=== PATIENT | male | born 1960 | race Hispanic/Latino ===

== ENCOUNTER 2020-05-07 16:38 | Inpatient (IN) | payer MEDICARE ==
--- NOTE | 2020-05-08 08:19 | History and Physical Report ---
GP History & Physical - History of Present Illness Date of admission: 05/07/20 Date of Examination: 05/08/20 Reason for Admission: Danger to self, Failure of Outpatient Treatment, Severe anxiety/depression History of Present Illness: Joseluis Combs is a 60y/o male patient who was admitted to [facility] for severe depression and suicidal thoughts. He says his depression has been "bad for about a month." He says he has "a lot of stuff going on." The patient currently denies suicide at present, but states he was when he came in. He says "I had back surgery and lost my mom, it's been a lot." He denies hallucinations of any kind. Mr. Comsb says he has a history of "bipolar, schizophrenia, and borderline personality disorder." He says he takes "seroquel and klonopin." The patient denies illicit drug use, and alcohol use. He says he is a smoker but states "I don't not want a patch. They run my blood pressure up." PAST PSYCHIATRIC HISTORY Diagnoses: Bipolar, schizophrenia, borderline personality disorder Suicide attempts or Self-harm behavior: Three times Prior psychiatric hospitalizations: Yes Substance Abuse history: Nicotine Previous psychiatric medications tried: Seroquel, klonopin Outpatient treatment: Yes PAST MEDICAL HISTORY: Chronic back pain, HTN Family Psychiatric History: None reported or documented SOCIAL HISTORY Marital Status: Single Living Arrangements: with fiance Employment Status: disabled Access to guns/weapons: Denies Education: High school graduate History of Abuse: None reported Legal History: Denies REVIEW OF SYSTEMS Constitutional: Negative for weight loss ENT: Negative for stridor Respiratory: Negative for cough or hemoptysis All other systems reviewed and are negative MENTAL STATUS EXAMINATION General Appearance: Dressed appropriately. Behavior: calm and Cooperative. Polite Mood: "Depressed" Affect: Congruent with stated mood Speech: Normal tone, and pace Thought Process: Goal directed Suicidal Ideation: Denies at present, but upon admission Homicidal Ideation: Denies Hallucinations: Denies Delusions: None elicited Insight and Judgment: Limited Memory/Cognition: Limited ASSESSMENT Bipolar Disorder, Severe, Current Episode Depressed w/o Psychotic Features Treatment Plan Patient admitted for inpatient psychiatric evaluation, medication adjustment and close monitoring The patient's behavior, mood, sleep and appetite will be closely monitored. Patient enrolled in individual and group therapeutic sessions and encouraged to attend. Patient provided with a safe and structured environment. Patient's physical health needs will be addressed by the Hospitalist. Hospitalist Consulted Labs including CBC, CMP, Lipid profile and Hemoglobin A1C levels ordered for baseline reference Restarted home meds Start Zoloft 25mg po daily Social Assessment will be completed and the Ampoule Filler will work with patient and family to ensure a suitable and safe disposition Medication adjustment will be made as clinically indicated Usual Wellness Denominational/Preservation: - Start Trazodone 50 mg po QHS & 50 mg po QHS PRN between 10 PM & 2 AM for insomnia - Start Melatonin 5 mg po QHS to promote circadian rhythm - Start [place]-3 for brain health, reduce impulsivity, and as adjunctive treatment for mood disorder, continue upon discharge given overall benefits. - Start B1 prophylaxis with 200 mg po for 5 days Estimated days: 3 Post hospital care: primary care provider, psychiatric provider This certifies that Joseluis Combs is a 60y/o male patient who is expected to improved for the condition of Bipolar Disorder, with the symptoms of severe depression, and suicidal thoughts. VALERY (7 days) Outpatient treatment upon discharge Legal Status: Voluntary Reaction to Hospitalization: Accepting Medications and Allergies Allergies Allergy/AdvReac Type Severity Reaction Status Date / Time ketorolac Allergy Unknown Rash Verified 05/08/20 05:35 Penicillins Allergy Rash Verified 05/08/20 05:38 sumatriptan Allergy Rash Verified 05/08/20 05:39 Home Medications Medication Instructions Recorded Confirmed Last Taken Type Aspirin 81 mg PO DAILY 05/08/20 05/08/20 Unknown History Lipitor 40 mg PO QHS 05/08/20 05/08/20 Unknown History Metoprolol SUCCINATE ER TAB 50 mg PO DAILY 05/08/20 05/08/20 Unknown History SEROquel 300 mg PO HS 05/08/20 05/08/20 Unknown History clonazePAM 0.5 mg PO TID 05/08/20 05/08/20 Unknown History oxyCODONE /ACETAMINOPHEN 5 mg PO Q6HR PRN 05/08/20 05/08/20 Unknown History Results - Results Labs/Vitals: Laboratory Last Values POC Glucose 101 mg/dL (70-105) 05/08/20 05:07 Last Vital Signs Temp 98.3 F 05/08/20 04:45 Pulse 78 05/08/20 04:45 Resp 18 05/08/20 04:45 BP 142/99 05/08/20 04:45 Pulse Ox 95 05/08/20 04:45 Physical Examination - Constitutional Vitals: Vital Signs Temp Pulse Resp BP Pulse Ox 98.3 F 78 18 142/99 95 05/08/20 04:45 05/08/20 04:45 05/08/20 04:45 05/08/20 04:45 05/08/20 04:45 Temperature -Last 24 Hours Temperature 98.3 F Mental Status Exam - Vital signs Last Vital Signs Temp 98.3 F 05/08/20 04:45 Pulse 78 05/08/20 04:45 Resp 18 05/08/20 04:45 BP 142/99 05/08/20 04:45 Pulse Ox 95 05/08/20 04:45 Physician Certification - Certification Statement Physician Certification Statement: This is an acknowledgement statement that JOSELUIS COMBS is a 60 year old M who requires inpatient psychiatric admission for treatment which could reasonably be expected to improve the patient's condition for Estimated period of time patient will need to remain in the hospital: [ ] Plan for post-hospital care: [ ]
[2020-05-08] MEDS ORDERED: OXYCODONE PO PRN (08:27)
[2020-05-08] MEDS ORDERED: ACETAMINOPHEN PO PRN (08:27)
[2020-05-08] MEDS ORDERED: oxyCODONE /ACETAMINOPHEN 5-325MG TAB PO PRN (09:00)
[2020-05-08] MEDS: ASPIRIN EC 81 MG TAB PO SCH (09:15)
[2020-05-08] MEDS: clonazePAM 0.5 MG TAB PO SCH ×3 (09:15→22:27)
[2020-05-08] MEDS: SERTRALINE 25 MG TAB PO SCH (09:16)
[2020-05-08] MEDS: METOPROLOL SUCCINATE XL 50 MG TAB PO SCH (09:16)
[2020-05-08] MEDS ORDERED: NON-FORMULARY EACH (Aspirin 81 MG) PO SCH (10:00)
[2020-05-08] MEDS ORDERED: METOPROLOL SUCCINATE 50 MG PO SCH (10:00)
[2020-05-08] MEDS ORDERED: CLONAZEPAM 0.5 MG PO SCH (14:00)
--- NOTE | 2020-05-08 15:39 | Consultation ---
History of Present Illness - Reason for Consult Consult date: 05/08/20 Medical Management Requesting physician: CAREN HERMAN - History of Present Illness 60 YO Male with HTN, HLD, Migraine DAVISON, Chronic Pain Syndrome, LDD admitted to [facility] for psychiatric stabilization. consult placed by Dr. Herman for medical management. Patient seen and evaluated in the recreation room. Patient resting comfortably. No reported nursing events. Patient reports chronic pain. Patient denies fever, chills, chest pain, palpitation, productive cough, skin rash, recent ill contacts, or known exposure to COVID-19. Past History Past Medical History: hypertension, hyperlipidemia, other (See HPI) Past Surgical History: Other (Back surgery) Social history: single. denies: smoking Family history: hypertension Medications and Allergies Allergies Allergy/AdvReac Type Severity Reaction Status Date / Time ketorolac Allergy Unknown Rash Verified 05/08/20 05:35 Penicillins Allergy Rash Verified 05/08/20 05:38 sumatriptan Allergy Rash Verified 05/08/20 05:39 Home Medications Medication Instructions Recorded Confirmed Last Taken Type Aspirin 81 mg PO DAILY 05/08/20 05/08/20 Unknown History Lipitor 40 mg PO QHS 05/08/20 05/08/20 Unknown History Metoprolol SUCCINATE ER TAB 50 mg PO DAILY 05/08/20 05/08/20 Unknown History SEROquel 300 mg PO HS 05/08/20 05/08/20 Unknown History clonazePAM 0.5 mg PO TID 05/08/20 05/08/20 Unknown History oxyCODONE /ACETAMINOPHEN 5 mg PO Q6HR PRN 05/08/20 05/08/20 Unknown History Active Meds: Active Medications Aspirin (Halfprin Ec) 81 mg PO QDAY [facility] Last Admin: 05/08/20 09:15 Dose: 81 mg Documented by: Atorvastatin Calcium (Lipitor) 40 mg PO QHS [facility] Clonazepam (Klonopin) 0.5 mg PO TID [facility] Last Admin: 05/08/20 15:06 Dose: 0.5 mg Documented by: Metoprolol Succinate (Metoprolol Xl) 50 mg PO QDAY [facility] Last Admin: 05/08/20 09:16 Dose: 50 mg Documented by: Oxycodone/Acetaminophen (Percocet 5/325) 1 tab PO Q6H [facility] Quetiapine Fumarate (Seroquel) 300 mg PO QHS [facility] Sertraline HCl (Zoloft) 25 mg PO QDAY [facility] Last Admin: 05/08/20 09:16 Dose: 25 mg Documented by: Review of Systems Constitutional: chronic pain, no weight loss, no weight gain, no fever, no chills Ears, nose, mouth and throat: no ear pain, no ear discharge, no tinnitis, no decreased hearing, no nasal congestion Cardiovascular: no chest pain, no orthopnea, no rapid/irregular heart beat, no lightheadedness Respiratory: no cough, no cough with sputum, no hemoptysis, no shortness of br eath Gastrointestinal: no abdominal pain, no nausea, no vomiting, no diarrhea, no change in bowel habits, no hematemesis Genitourinary Male: no hematuria, no flank pain, no discharge, no urinary frequency Rectal: no pain Musculoskeletal: low back pain, no neck pain, no arm numbness/tingling, no leg numbness/tingling Integumentary: no rash, no redness, no sores, no wounds Neurological: no transient paralysis, no parathesias, no tingling, no seizures, no tremors Psychiatric: depression, no change in sleep habits, no sleep disturbances, no insomnia Endocrine: no cold intolerance, no heat intolerance, no excessive thirst, no polydipsia Hematologic/Lymphatic: no easy bruising, no easy bleeding Allergic/Immunologic: no allergic rhinitis, no wheezing Exam - Constitutional Vitals: Temp Pulse Resp BP Pulse Ox 98.3 F 76 16 131/86 97 05/08/20 10:00 05/08/20 10:00 05/08/20 10:00 05/08/20 10:00 05/08/20 10:00 General appearance: Present: no acute distress, well-nourished - EENT Eyes: Present: PERRL ENT: hearing intact, clear oral mucosa - Neck Neck: Present: supple, normal ROM - Respiratory Respiratory effort: normal Respiratory: bilateral: CTA - Cardiovascular Heart Sounds: Present: S1 & S2. Absent: rub, click - Extremities Extremities: pulses symmetrical, No edema Peripheral Pulses: within normal limits - Abdominal General gastrointestinal: Present: soft, non-tender, non-distended, normal bowel sounds Male genitourinary: Present: normal - Integumentary Integumentary: Present: clear, warm, dry - Musculoskeletal Musculoskeletal: gait normal, strength equal bilaterally - Psychiatric Psychiatric: appropriate mood/affect, intact judgment & insight - Neurologic Neurologic: CNII-XII intact, moves all extremities Results - Labs CBC & Chem 7: 05/08/20 19:37 05/08/20 19:37 Assessment and Plan - Patient Problems (1) Hypertension Current Visit: Yes Status: Acute Qualifiers: Hypertension type: essential hypertension Qualified Code(s): I10 - Essential (primary) hypertension Plan to address problem: Monitor blood pressure every shift, continue medical management. (2) Hyperlipidemia Current Visit: Yes Status: Acute Qualifiers: Hyperlipidemia type: mixed hyperlipidemia Qualified Code(s): E78.2 - Mixed hyperlipidemia Plan to address problem: Low-cholesterol diet, statin therapy is clinically indicated, supportive care. (3) Chronic pain syndrome Current Visit: Yes Status: Acute Plan to address problem: Pain control, supportive care, continue medical management. (4) Migraine headache Current Visit: Yes Status: Acute Plan to address problem: Supportive care, no headache at this time.
[2020-05-08] MEDS: oxyCODONE /ACETAMINOPHEN 5-325MG TAB PO SCH ×2 (15:41→22:27)
[2020-05-08 20:28] LABS: Alanine Aminotransferase 20 units/L (7-56); Albumin 4.6 g/dL (3.9-5); BUN/Creatinine Ratio 14; Blood Urea Nitrogen 11 mg/dL (9-20); Calcium 9.4 mg/dL (8.4-10.2); Chol/HDL Ratio 5.36 %; HDL Cholesterol 38 mg/dL (40-59); Hemolysis Index 39; LDL Cholesterol,Direct 140 mg/dL (50-130)
[2020-05-08 20:32] LABS: Basophils % (Auto) 0.5 % (0.0-1.8); Eosinophils # (Auto) 0.1 K/mm3 (0.0-0.4); Eosinophils % (Auto) 1.3 % (0.0-4.3); Hematocrit 45.1 % (35.5-45.6); Hemoglobin 15.6 gm/dl (11.8-15.2); Lymphocytes # (Auto) 1.5 K/mm3 (1.2-5.4); Lymphocytes % (Auto) 27.3 % (13.4-35.0); Mean Corpuscular HGB Conc 35 % (32-34); Mean Corpuscular Volume 91 fl (84-94); Monocytes # (Auto) 0.6 K/mm3 (0.0-0.8); Monocytes % (Auto) 10.9 % (0.0-7.3); Platelet Count 131 K/mm3 (140-440); Red Blood Count 4.98 M/mm3 (3.65-5.03); Red Cell Distribution Width 13.5 % (13.2-15.2)
[2020-05-08] MEDS ORDERED: NON-FORMULARY EACH (Seroquel 300 MG) PO SCH (22:00)
[2020-05-08] MEDS ORDERED: NON-FORMULARY EACH (Lipitor 40 MG) PO SCH (22:00)
[2020-05-08] MEDS: QUEtiapine 100 MG TAB PO SCH (22:27)
[2020-05-09] MEDS: oxyCODONE /ACETAMINOPHEN 5-325MG TAB PO SCH ×4 (04:40→22:00)
[2020-05-09] MEDS: METOPROLOL SUCCINATE XL 50 MG TAB PO SCH (09:34)
[2020-05-09] MEDS: clonazePAM 0.5 MG TAB PO SCH ×3 (09:34→20:30)
[2020-05-09] MEDS: ASPIRIN EC 81 MG TAB PO SCH (09:34)
[2020-05-09] MEDS: SERTRALINE 25 MG TAB PO SCH (09:34)
--- NOTE | 2020-05-09 10:44 | Progress Note ---
Subjective Date of service: 05/09/20 Principal diagnosis: Major Depressive Disorder Subjective Comment: During my interview with the patient today, he states he is better, but says he's still in a lot of pain. The patient denies SI/HI at the moment but says it's on and off. He denies hallucinations of any kind. He says his mood is "pretty good, just in pain." Reason for continued inpatient treatment: The patient has suicidal thoughts on and off REVIEW OF SYSTEMS Constitutional: Negative for weight loss ENT: Negative for stridor Respiratory: Negative for cough or hemoptysis All other systems reviewed and are negative MENTAL STATUS EXAMINATION General Appearance: Dressed appropriately. Behavior: calm and Cooperative. Polite Mood: "good" Affect: Congruent with stated mood Speech: Normal tone, and pace Thought Process: Goal directed Suicidal Ideation: Denies at present, but on and off Homicidal Ideation: Denies Hallucinations: Denies Delusions: None elicited Insight and Judgment: Limited Memory/Cognition: Limited ASSESSMENT Bipolar Disorder, Severe, Current Episode Depressed w/o Psychotic Features Treatment Plan Patient admitted for inpatient psychiatric evaluation, medication adjustment and close monitoring The patient's behavior, mood, sleep and appetite will be closely monitored. Patient enrolled in individual and group therapeutic sessions and encouraged to attend. Patient provided with a safe and structured environment. Patient's physical health needs will be addressed by the Hospitalist. Hospitalist Consulted Labs including CBC, CMP, Lipid profile and Hemoglobin A1C levels ordered for baseline reference Started zoloft 25mg daily yesterday No changes today Social Assessment will be completed and the Surgical Orderly will work with patient and family to ensure a suitable and safe disposition Medication adjustment will be made as clinically indicated Usual Wellness Restorationist/Preservation: - Start Trazodone 50 mg po QHS & 50 mg po QHS PRN between 10 PM & 2 AM for insomnia - Start Melatonin 5 mg po QHS to promote circadian rhythm - Start [place]-3 for brain health, reduce impulsivity, and as adjunctive treatment for mood disorder, continue upon discharge given overall benefits. - Start B1 prophylaxis with 200 mg po for 5 days Estimated days: 3 Post hospital care: primary care provider, psychiatric provider This certifies that Joseluis Huff is a 60y/o male patient who is expected to improved for the condition of Bipolar Disorder, with the symptoms of severe depression, and suicidal thoughts. ELOS (7 days) Outpatient treatment upon discharge Medications and Allergies Allergies Allergy/AdvReac Type Severity Reaction Status Date / Time ketorolac Allergy Unknown Rash Verified 05/08/20 05:35 Penicillins Allergy Rash Verified 05/08/20 05:38 sumatriptan Allergy Rash Verified 05/08/20 05:39 Home Medications Medication Instructions Recorded Confirmed Last Taken Type Aspirin 81 mg PO DAILY 05/08/20 05/08/20 Unknown History Lipitor 40 mg PO QHS 05/08/20 05/08/20 Unknown History Metoprolol SUCCINATE ER TAB 50 mg PO DAILY 05/08/20 05/08/20 Unknown History SEROquel 300 mg PO HS 05/08/20 05/08/20 Unknown History clonazePAM 0.5 mg PO TID 05/08/20 05/08/20 Unknown History oxyCODONE /ACETAMINOPHEN 5 mg PO Q6HR PRN 05/08/20 05/08/20 Unknown History Active Meds: Active Medications Aspirin (Halfprin Ec) 81 mg PO QDAY [facility] Last Admin: 05/09/20 09:34 Dose: 81 mg Documented by: Atorvastatin Calcium (Lipitor) 40 mg PO QHS [facility] Last Admin: 05/08/20 22:26 Dose: 40 mg Documented by: Clonazepam (Klonopin) 0.5 mg PO TID [facility] Last Admin: 05/09/20 09:34 Dose: 0.5 mg Documented by: Metoprolol Succinate (Metoprolol Xl) 50 mg PO QDAY [facility] Last Admin: 05/09/20 09:34 Dose: 50 mg Documented by: Oxycodone/Acetaminophen (Percocet 5/325) 1 tab PO Q6H [facility] Last Admin: 05/09/20 10:10 Dose: 1 tab Documented by: Quetiapine Fumarate (Seroquel) 300 mg PO QHS [facility] Last Admin: 05/08/20 22:27 Dose: 300 mg Documented by: Sertraline HCl (Zoloft) 25 mg PO QDAY [facility] Last Admin: 05/09/20 09:34 Dose: 25 mg Documented by: Results - Results Labs/Vitals: Laboratory Last Values WBC 5.5 K/mm3 (4.5-11.0) 05/08/20 19:37 RBC 4.98 M/mm3 (3.65-5.03) 05/08/20 19:37 Hgb 15.6 gm/dl (11.8-15.2) H 05/08/20 19:37 Hct 45.1 % (35.5-45.6) 05/08/20 19:37 MCV 91 fl (84-94) 05/08/20 19:37 MCH 31 pg (28-32) 05/08/20 19:37 MCHC 35 % (32-34) H 05/08/20 19:37 RDW 13.5 % (13.2-15.2) 05/08/20 19:37 Plt Count 131 K/mm3 (140-440) L 05/08/20 19:37 Lymph % (Auto) 27.3 % (13.4-35.0) 05/08/20 19:37 [place] % (Auto) 10.9 % (0.0-7.3) H 05/08/20 19:37 Eos % (Auto) 1.3 % (0.0-4.3) 05/08/20 19:37 Baso % (Auto) 0.5 % (0.0-1.8) 05/08/20 19:37 Lymph # (Auto) 1.5 K/mm3 (1.2-5.4) 05/08/20 19:37 [place] # (Auto) 0.6 K/mm3 (0.0-0.8) 05/08/20 19:37 Eos # (Auto) 0.1 K/mm3 (0.0-0.4) 05/08/20 19:37 Baso # (Auto) 0.0 K/mm3 (0.0-0.1) 05/08/20 19:37 Seg Neutrophils % 60.0 % (40.0-70.0) 05/08/20 19:37 Seg Neutrophils # 3.3 K/mm3 (1.8-7.7) 05/08/20 19:37 Sodium 136 mmol/L (137-145) L 05/08/20 19:37 Potassium 4.0 mmol/L (3.6-5.0) 05/08/20 19:37 Chloride 102.1 mmol/L (98-107) 05/08/20 19:37 Carbon Dioxide 22 mmol/L (22-30) 05/08/20 19:37 Anion Gap 16 mmol/L 05/08/20 19:37 BUN 11 mg/dL (9-20) 05/08/20 19:37 Creatinine 0.8 mg/dL (0.8-1.3) 05/08/20 19:37 Estimated GFR > 60 ml/min 05/08/20 19:37 BUN/Creatinine Ratio 14 % 05/08/20 19:37 Glucose 91 mg/dL (75-100) 05/08/20 19:37 POC Glucose 101 mg/dL (70-105) 05/08/20 05:07 Hemoglobin A1c 5.5 % (4-6) 05/08/20 19:37 Calcium 9.4 mg/dL (8.4-10.2) 05/08/20 19:37 Total Bilirubin 0.60 mg/dL (0.1-1.2) 05/08/20 19:37 AST 21 units/L (5-40) 05/08/20 19:37 ALT 20 units/L (7-56) 05/08/20 19:37 Alkaline Phosphatase 164 units/L (35-129) H 05/08/20 19:37 Total Protein 7.6 g/dL (6.3-8.2) 05/08/20 19:37 Albumin 4.6 g/dL (3.9-5) 05/08/20 19:37 Albumin/Globulin Ratio 1.5 % 05/08/20 19:37 Triglycerides 241 mg/dL (2-149) H 05/08/20 19:37 Cholesterol 204 mg/dL (50-199) H 05/08/20 19:37 LDL Cholesterol Direct 140 mg/dL (50-130) H 05/08/20 19:37 HDL Cholesterol 38 mg/dL (40-59) L 05/08/20 19:37 Cholesterol/HDL Ratio 5.36 % 05/08/20 19:37 TSH 2.500 mlU/mL (0.270-4.200) 05/08/20 19:37 Last Vital Signs Temp 98.7 F 05/09/20 08:45 Pulse 97 H 05/09/20 09:34 Resp 18 05/09/20 10:10 BP 118/86 05/09/20 08:45 Pulse Ox 95 05/09/20 08:45
[2020-05-09] MEDS: QUEtiapine 100 MG TAB PO SCH (21:59)
[2020-05-10] MEDS: oxyCODONE /ACETAMINOPHEN 5-325MG TAB PO SCH ×4 (04:00→21:24)
[2020-05-10] MEDS: clonazePAM 0.5 MG TAB PO SCH ×3 (07:53→20:33)
[2020-05-10] MEDS: ASPIRIN EC 81 MG TAB PO SCH (09:38)
[2020-05-10] MEDS: SERTRALINE 25 MG TAB PO SCH (09:38)
[2020-05-10] MEDS: METOPROLOL SUCCINATE XL 50 MG TAB PO SCH (09:39)
--- NOTE | 2020-05-10 11:22 | Progress Note ---
Subjective Date of service: 05/10/20 Principal diagnosis: Major Depressive Disorder Subjective Comment: During my interview with the patient today, he states he is better, but says he's still in a lot of pain. The patient denies SI/HI at the moment but says it's on and off. He denies hallucinations of any kind. The patient describes his mood as "okay." He states his pain is the source of his "thoughts." Reason for continued inpatient treatment: The patient appears to have significantly improved. Will continue to treat and evaluate to ensue a safe discharge. REVIEW OF SYSTEMS Constitutional: Negative for weight loss ENT: Negative for stridor Respiratory: Negative for cough or hemoptysis All other systems reviewed and are negative MENTAL STATUS EXAMINATION General Appearance: Dressed appropriately. Behavior: calm and Cooperative. Polite Mood: Okay Affect: Congruent with stated mood Speech: Normal tone, and pace Thought Process: Goal directed Suicidal Ideation: Denies at present Homicidal Ideation: Denies Hallucinations: Denies Delusions: None elicited Insight and Judgment: Limited Memory/Cognition: Limited ASSESSMENT Bipolar Disorder, Severe, Current Episode Depressed w/o Psychotic Features Treatment Plan Patient admitted for inpatient psychiatric evaluation, medication adjustment and close monitoring The patient's behavior, mood, sleep and appetite will be closely monitored. Patient enrolled in individual and group therapeutic sessions and encouraged to attend. Patient provided with a safe and structured environment. Patient's physical health needs will be addressed by the Hospitalist. Hospitalist Consulted Labs including CBC, CMP, Lipid profile and Hemoglobin A1C levels ordered for baseline reference No changes today Social Assessment will be completed and the Tieing Machine Operator will work with patient and family to ensure a suitable and safe disposition Medication adjustment will be made as clinically indicated Usual Wellness Zoroastrian/Preservation: - Start Trazodone 50 mg po QHS & 50 mg po QHS PRN between 10 PM & 2 AM for insomnia - Start Melatonin 5 mg po QHS to promote circadian rhythm - Start [place]-3 for brain health, reduce impulsivity, and as adjunctive treatment for mood disorder, continue upon discharge given overall benefits. - Start B1 prophylaxis with 200 mg po for 5 days Estimated days: 3 Post hospital care: primary care provider, psychiatric provider This certifies that Joseluis Huff is a 60y/o male patient who is expected to improved for the condition of Bipolar Disorder, with the symptoms of severe depression, and suicidal thoughts. VALERY (7 days) Outpatient treatment upon discharge Medications and Allergies Allergies Allergy/AdvReac Type Severity Reaction Status Date / Time ketorolac Allergy Unknown Rash Verified 05/08/20 05:35 Penicillins Allergy Rash Verified 05/08/20 05:38 sumatriptan Allergy Rash Verified 05/08/20 05:39 Home Medications Medication Instructions Recorded Confirmed Last Taken Type Aspirin 81 mg PO DAILY 05/08/20 05/08/20 Unknown History Lipitor 40 mg PO QHS 05/08/20 05/08/20 Unknown History Metoprolol SUCCINATE ER TAB 50 mg PO DAILY 05/08/20 05/08/20 Unknown History SEROquel 300 mg PO HS 05/08/20 05/08/20 Unknown History clonazePAM 0.5 mg PO TID 05/08/20 05/08/20 Unknown History oxyCODONE /ACETAMINOPHEN 5 mg PO Q6HR PRN 05/08/20 05/08/20 Unknown History Active Meds: Active Medications Aspirin (Halfprin Ec) 81 mg PO QDAY [facility] Last Admin: 05/10/20 09:38 Dose: 81 mg Documented by: Atorvastatin Calcium (Lipitor) 40 mg PO QHS [facility] Last Admin: 05/09/20 22:01 Dose: 40 mg Documented by: Clonazepam (Klonopin) 0.5 mg PO TID [facility] Last Admin: 05/10/20 07:53 Dose: 0.5 mg Documented by: Metoprolol Succinate (Metoprolol Xl) 50 mg PO QDAY [facility] Last Admin: 05/10/20 09:39 Dose: Not Given Documented by: Oxycodone/Acetaminophen (Percocet 5/325) 1 tab PO Q6H [facility] Last Admin: 05/10/20 09:38 Dose: 1 tab Documented by: Quetiapine Fumarate (Seroquel) 300 mg PO QHS [facility] Last Admin: 05/09/20 21:59 Dose: 300 mg Documented by: Sertraline HCl (Zoloft) 25 mg PO QDAY [facility] Last Admin: 05/10/20 09:38 Dose: 25 mg Documented by: Results - Results Labs/Vitals: Laboratory Last Values WBC 5.5 K/mm3 (4.5-11.0) 05/08/20 19:37 RBC 4.98 M/mm3 (3.65-5.03) 05/08/20 19:37 Hgb 15.6 gm/dl (11.8-15.2) H 05/08/20 19:37 Hct 45.1 % (35.5-45.6) 05/08/20 19:37 MCV 91 fl (84-94) 05/08/20 19:37 MCH 31 pg (28-32) 05/08/20 19:37 MCHC 35 % (32-34) H 05/08/20 19:37 RDW 13.5 % (13.2-15.2) 05/08/20 19:37 Plt Count 131 K/mm3 (140-440) L 05/08/20 19:37 Lymph % (Auto) 27.3 % (13.4-35.0) 05/08/20 19:37 [place] % (Auto) 10.9 % (0.0-7.3) H 05/08/20 19:37 Eos % (Auto) 1.3 % (0.0-4.3) 05/08/20 19:37 Baso % (Auto) 0.5 % (0.0-1.8) 05/08/20 19:37 Lymph # (Auto) 1.5 K/mm3 (1.2-5.4) 05/08/20 19:37 [place] # (Auto) 0.6 K/mm3 (0.0-0.8) 05/08/20 19:37 Eos # (Auto) 0.1 K/mm3 (0.0-0.4) 05/08/20 19:37 Baso # (Auto) 0.0 K/mm3 (0.0-0.1) 05/08/20 19:37 Seg Neutrophils % 60.0 % (40.0-70.0) 05/08/20 19:37 Seg Neutrophils # 3.3 K/mm3 (1.8-7.7) 05/08/20 19:37 Sodium 136 mmol/L (137-145) L 05/08/20 19:37 Potassium 4.0 mmol/L (3.6-5.0) 05/08/20 19:37 Chloride 102.1 mmol/L (98-107) 05/08/20 19:37 Carbon Dioxide 22 mmol/L (22-30) 05/08/20 19:37 Anion Gap 16 mmol/L 05/08/20 19:37 BUN 11 mg/dL (9-20) 05/08/20 19:37 Creatinine 0.8 mg/dL (0.8-1.3) 05/08/20 19:37 Estimated GFR > 60 ml/min 05/08/20 19:37 BUN/Creatinine Ratio 14 % 05/08/20 19:37 Glucose 91 mg/dL (75-100) 05/08/20 19:37 POC Glucose 101 mg/dL (70-105) 05/08/20 05:07 Hemoglobin A1c 5.5 % (4-6) 05/08/20 19:37 Calcium 9.4 mg/dL (8.4-10.2) 05/08/20 19:37 Total Bilirubin 0.60 mg/dL (0.1-1.2) 05/08/20 19:37 AST 21 units/L (5-40) 05/08/20 19:37 ALT 20 units/L (7-56) 05/08/20 19:37 Alkaline Phosphatase 164 units/L (35-129) H 05/08/20 19:37 Total Protein 7.6 g/dL (6.3-8.2) 05/08/20 19:37 Albumin 4.6 g/dL (3.9-5) 05/08/20 19:37 Albumin/Globulin Ratio 1.5 % 05/08/20 19:37 Triglycerides 241 mg/dL (2-149) H 05/08/20 19:37 Cholesterol 204 mg/dL (50-199) H 05/08/20 19:37 LDL Cholesterol Direct 140 mg/dL (50-130) H 05/08/20 19:37 HDL Cholesterol 38 mg/dL (40-59) L 05/08/20 19:37 Cholesterol/HDL Ratio 5.36 % 05/08/20 19:37 TSH 2.500 mlU/mL (0.270-4.200) 05/08/20 19:37 Last Vital Signs Temp 97.9 F 05/10/20 08:24 Pulse 82 05/10/20 09:39 Resp 18 05/10/20 09:38 BP 99/60 05/10/20 09:39 Pulse Ox 96 05/10/20 08:24
[2020-05-10] MEDS: QUEtiapine 100 MG TAB PO SCH (21:24)
[2020-05-11] MEDS: oxyCODONE /ACETAMINOPHEN 5-325MG TAB PO SCH (03:23)
--- NOTE | 2020-05-11 08:00 | Discharge Summary ---
Providers - Providers Date of Admission: 05/08/20 04:31 Date of discharge: 05/11/20 Attending physician: CAREN HERMAN MD 05/07/20 17:02 Consult to Physician [CONS] Routine Comment: Consulting Provider: STANISLAW ROBERTS Physician Instructions: Reason For Exam: manage medical conditions 05/09/20 09:46 Speech Therapy Evaluation and Treat [CONS] Stat Reason For Exam: Difficultly swallowing Primary care physician: LEAD PONY RIDER Hospitalization Reason for admission: SI Admitting Diagnosis: F33.9 - MAJOR DEPRESSIVE DISORDER, RECURRENT, UNSPECIFIED Condition: Stable Hospital course: The patient was provided inpatient psychiatric treatment with safe and supportive care, medication adjustment, adverse effect monitoring, medical evaluations, medical treatments, assessment and psycho-education. The patient's mood, cognition, behavior, moral support are improved and stabilized. St the time of discharge, the patient had no endangering behavior and no debilitating adverse effects. The patient agreed on potential consequences of no treatment and gave informed consent. Disposition: DC- TO HOME OR SELFCARE Time spent for discharge: 38 Allergies/Adverse Reactions: Allergies ketorolac Allergy (Unknown, Verified 05/08/20 05:35) Rash Penicillins Allergy (Verified 05/08/20 05:38) Rash sumatriptan Allergy (Verified 05/08/20 05:39) Rash Vital Signs: Last Vital Signs Temp 98.5 F 05/10/20 19:33 Pulse 72 05/10/20 19:33 Resp 18 05/11/20 03:23 BP 117/78 05/10/20 19:33 Pulse Ox 96 05/10/20 19:33 Last Lab: Laboratory Last Values WBC 5.5 K/mm3 (4.5-11.0) 05/08/20 19:37 RBC 4.98 M/mm3 (3.65-5.03) 05/08/20 19:37 Hgb 15.6 gm/dl (11.8-15.2) H 05/08/20 19:37 Hct 45.1 % (35.5-45.6) 05/08/20 19:37 MCV 91 fl (84-94) 05/08/20 19:37 MCH 31 pg (28-32) 05/08/20 19:37 MCHC 35 % (32-34) H 05/08/20 19:37 RDW 13.5 % (13.2-15.2) 05/08/20 19:37 Plt Count 131 K/mm3 (140-440) L 05/08/20 19:37 Lymph % (Auto) 27.3 % (13.4-35.0) 05/08/20 19:37 [place] % (Auto) 10.9 % (0.0-7.3) H 05/08/20 19:37 Eos % (Auto) 1.3 % (0.0-4.3) 05/08/20 19:37 Baso % (Auto) 0.5 % (0.0-1.8) 05/08/20 19:37 Lymph # (Auto) 1.5 K/mm3 (1.2-5.4) 05/08/20 19:37 [place] # (Auto) 0.6 K/mm3 (0.0-0.8) 05/08/20 19:37 Eos # (Auto) 0.1 K/mm3 (0.0-0.4) 05/08/20 19:37 Baso # (Auto) 0.0 K/mm3 (0.0-0.1) 05/08/20 19:37 Seg Neutrophils % 60.0 % (40.0-70.0) 05/08/20 19:37 Seg Neutrophils # 3.3 K/mm3 (1.8-7.7) 05/08/20 19:37 Sodium 136 mmol/L (137-145) L 05/08/20 19:37 Potassium 4.0 mmol/L (3.6-5.0) 05/08/20 19:37 Chloride 102.1 mmol/L (98-107) 05/08/20 19:37 Carbon Dioxide 22 mmol/L (22-30) 05/08/20 19:37 Anion Gap 16 mmol/L 05/08/20 19:37 BUN 11 mg/dL (9-20) 05/08/20 19:37 Creatinine 0.8 mg/dL (0.8-1.3) 05/08/20 19:37 Estimated GFR > 60 ml/min 05/08/20 19:37 BUN/Creatinine Ratio 14 % 05/08/20 19:37 Glucose 91 mg/dL (75-100) 05/08/20 19:37 POC Glucose 101 mg/dL (70-105) 05/08/20 05:07 Hemoglobin A1c 5.5 % (4-6) 05/08/20 19:37 Calcium 9.4 mg/dL (8.4-10.2) 05/08/20 19:37 Total Bilirubin 0.60 mg/dL (0.1-1.2) 05/08/20 19:37 AST 21 units/L (5-40) 05/08/20 19:37 ALT 20 units/L (7-56) 05/08/20 19:37 Alkaline Phosphatase 164 units/L (35-129) H 05/08/20 19:37 Total Protein 7.6 g/dL (6.3-8.2) 05/08/20 19:37 Albumin 4.6 g/dL (3.9-5) 05/08/20 19:37 Albumin/Globulin Ratio 1.5 % 05/08/20 19:37 Triglycerides 241 mg/dL (2-149) H 05/08/20 19:37 Cholesterol 204 mg/dL (50-199) H 05/08/20 19:37 LDL Cholesterol Direct 140 mg/dL (50-130) H 05/08/20 19:37 HDL Cholesterol 38 mg/dL (40-59) L 05/08/20 19:37 Cholesterol/HDL Ratio 5.36 % 05/08/20 19:37 TSH 2.500 mlU/mL (0.270-4.200) 05/08/20 19:37 Core Measure Documentation - Palliative Care Palliative Care/ Comfort Measures: Not Applicable - Core Measures Any of the following diagnoses?: none Exam - Constitutional Vitals: Temp Pulse Resp BP Pulse Ox 98.5 F 72 18 117/78 96 05/10/20 19:33 05/10/20 19:33 05/11/20 03:23 05/10/20 19:33 05/10/20 19:33 General appearance: Present: no acute distress - EENT Eyes: Present: PERRL, EOM intact ENT: hearing intact, clear oral mucosa - Neck Neck: Present: supple - Respiratory Respiratory effort: normal Plan Activity: advance as tolerated Weight Bearing Status: Weight Bear as Tolerated Follow up with: PRIMARY CARE, [Primary Care Provider] - 7 Days
[2020-05-11 09:27] VITALS: BP 108/75
[2020-05-11] MEDS: ASPIRIN EC 81 MG TAB PO SCH (09:27)
[2020-05-11] MEDS: METOPROLOL SUCCINATE XL 50 MG TAB PO SCH (09:28)
[2020-05-11] MEDS: clonazePAM 0.5 MG TAB PO SCH (09:28)
[2020-05-11] MEDS: SERTRALINE 25 MG TAB PO SCH (09:28)
== END 2020-05-11 10:40 | disposition home or self-care (01) | DRG 885 ==
LOC: UNDOADMIN 16:38 → 3A 16:38 → 5A 05-08 04:31
PROVIDERS: ADMIT Psychiatry & Neurology Psychiatry; ATTEND Psychiatry & Neurology Psychiatry
DX: F31.4 Bipolar disorder, current episode depressed, severe, without psychotic features (principal); R45.851 Suicidal ideations; F41.9 Anxiety disorder, unspecified; F60.3 Borderline personality disorder; I10 Essential (primary) hypertension; E78.5 Hyperlipidemia, unspecified; G89.4 Chronic pain syndrome; Z79.899 Other long term (current) drug therapy; Z79.82 Long term (current) use of aspirin; Z88.0 Allergy status to penicillin; Z88.8 Allergy status to other drugs, medicaments and biological substances
CPT/HCPCS: 36415; 80053; 80061; 82962; 83036; 84443; 85025; G0378; A9270-GY